=== PATIENT | male | born 2000 | race Caucasian/White ===

== ENCOUNTER 2022-03-18 12:16 | Emergency (ER) | payer SELFPAY ==
[2022-03-18 15:04] LABS: CORONAVIRUS COVID-19 NAA POSITIVE (NEGATIVE)
== END 2022-03-18 17:00 | disposition home or self-care (01) ==
LOC: JD.ED 12:16
DX: U07.1 COVID-19 (principal); Z72.0 Tobacco use; Z88.0 Allergy status to penicillin
CPT/HCPCS: 0241U; 36415; 71045; 80053; 85025; 85379; 93005; 99284